=== PATIENT | male | born 1955 ===

== ENCOUNTER 2020-12-02 05:48 | Day surgery (SDC) | payer OTHER ==
[~2020-12-02 05:48] MED LIST: CLONAZEPAM2 M1 PO; CYMBALTA60 MG PO; EXELON PO; FARXIGA10 MG PO; LIPITOR20 MG PO; LOSARTAN-HCTZ1 EAC2 PO; NAMENDA5 MG PO; NORVASC5 MG PO; PROSOM; SYNTHROID50 MCG PO
== END 2020-12-02 14:10 | disposition home or self-care (01) ==
LOC: CIR.AMB 05:48
PROVIDERS: ATTEND Orthopaedic Surgery Hand Surgery
DX: G56.01 Carpal tunnel syndrome, right upper limb (principal); Z20.822 Contact with and (suspected) exposure to COVID-19

== ENCOUNTER 2022-06-15 07:07 | Day surgery (SDC) | payer OTHER ==
[~2022-06-15] VITALS: Ht 162.6 cm; Wt 101.6 kg
[~2022-06-15 07:07] MED LIST changes: +CARVEDILOL6.25 MG PO; +COZAAR100 MG PO; +OZEMPIC0.25 MG/0.; +SINGULAIR10 MG PO
== END 2022-06-15 12:05 | disposition home or self-care (01) ==
LOC: CIR.AMB 07:07
PROVIDERS: ATTEND Orthopaedic Surgery Hand Surgery
DX: G56.02 Carpal tunnel syndrome, left upper limb (principal); Z20.822 Contact with and (suspected) exposure to COVID-19; I10 Essential (primary) hypertension